=== PATIENT | male | born 1975 | race Asian ===

== ENCOUNTER 2021-06-06 16:14 | Outpatient (REF) | payer BC, SELFPAY ==
[2021-06-07 03:04] LABS: CT PCR NOT DETECTED (Not Detect.); NG PCR NOT DETECTED (Not Detect.)
[2021-06-07 03:42] LABS: Syphilis Screen Nonreactive (Nonreactive)
[2021-06-07 04:18] LABS: HIV AB/AG Nonreactive (Nonreactive); HIV Num 1 0.06 S/CO (0.00-0.99)
== END 2021-06-06 16:15 | disposition home or self-care (01) ==
LOC: HO.LAB 16:14
PROVIDERS: Visit Provider Internal Medicine
DX: Z11.3 Encounter for screening for infections with a predominantly sexual mode of transmission (principal); Z11.4 Encounter for screening for human immunodeficiency virus [HIV]
CPT/HCPCS: 36415; 86780; 87389; 87491; 87591